=== PATIENT | female | born 1960 | race Caucasian/White ===

== ENCOUNTER 2021-09-24 10:35 | Inpatient (IN) | payer MEDICAID ==
[~2021-09-24] VITALS: Ht 162.6 cm; Wt 97.5 kg
[~2021-09-24 10:35] MED LIST: METH1TAB31
--- NOTE | 2021-09-24 10:48 | NUR ---
BIB FOR ON & OFF RLQ PAIN X 3 MONTHS,WORSE SINCE YESTERDAY. RATES RLQ PAIN 8/10. ABDOMEN SOFT AND NON-DISTENDED. DENIES N/V. RESPIRATION REGULAR AND UNLABORED. WILL CONTINUE TO MONITOR THE PATIENT.
--- NOTE | 2021-09-24 10:50 | NUR ---
URINE COLLECTED AND SENT TO LAB
[2021-09-24 11:20] LABS: BASOPHILS % (AUTO) 0.3 % (0.0-2.0); EOSINOPHILS % (AUTO) 0.8 % (0.0-6.0); HEMATOCRIT 40 % (33-45); HEMOGLOBIN 13.1 g/dL (11.5-14.8); MEAN CORPUSCULAR HGB CONC 33 g/dl (31.0-36.0); MEAN CORPUSCULAR VOLUME 91 fL (82-100); MONOCYTES # (AUTO) 0.4 K/uL (0.1-1.30); MONOCYTES % (AUTO) 4.5 % (2.0-12.0); NEUTROPHILS # (AUTO) 6.8 K/uL (1.8-8.9); NEUTROPHILS % (AUTO) 73.4 % (43.0-81.0); PLATELET COUNT (AUTO) 279 K/uL (150-450); WHITE BLOOD COUNT (AUTO) 9.3 K/uL (4.3-11.0)
[2021-09-24 11:21] LABS: BILIRUBIN,URINE NEGATIVE (NEGATIVE); COLOR,URINE YELLOW (YELLOW); LEUKOCYTE ESTERASE ,URINE NEGATIVE (NEGATIVE); NITRITE, URINE NEGATIVE (NEGATIVE); PH,URINE 5.5 (5.0-8.0); PROTEIN,URINE NEGATIVE (NEGATIVE); UGLUCOSE NEGATIVE (NEGATIVE); UROBILINOGEN,URINE 0.2 EU/dL (0.2)
--- NOTE | 2021-09-24 11:28 | NUR ---
WHEELED OUT VIA [facility] BY [facility] FOR CT SCAN
[2021-09-24 11:31] LABS: CALCIUM, SERUM 10.1 mg/dL (8.5-10.1); CREATININE 0.9 mg/dL (0.6-1.3); POTASSIUM 4.3 mmol/L (3.5-5.1)
[2021-09-24 11:36] LABS: ALBUMIN 3.6 g/dL (3.4-5.0); BILIRUBIN,DIRECT 0.1 mg/dL (0.0-0.2); BILIRUBIN,TOTAL 0.5 mg/dL (0.2-1.0); TOTAL PROTEIN, SERUM 7.5 g/dL (6.4-8.2)
[2021-09-24] MEDS ORDERED: LEVOFLOXACIN 750 MG /D5W 150ML PIGGYBACK IV ONE (13:30)
[2021-09-24] MEDS ORDERED: LEVOFLOXACIN 750 MG /D5W 150ML 150 ML IV ONE (13:35)
--- NOTE | 2021-09-24 14:45 | NUR ---
COVID AG SWAB DONE AND SENT TO LAB
[2021-09-24] MEDS ORDERED: ONDANSETRON HCL/PF 4 MG/2 ML VIAL ONE (14:52)
[2021-09-24] MEDS ORDERED: MORPHINE SULFATE INJ 2 MG/ML DISP.SYRIN ONE (14:53)
[2021-09-24] MEDS ORDERED: MORPHINE SULFATE INJ 2 MG/ML DISP.SYRIN IV ONE (15:00)
[2021-09-24] MEDS ORDERED: ONDANSETRON HCL/PF - ER 4 MG/2 ML VIAL IV ONE (15:00)
--- NOTE | 2021-09-24 16:12 | NUR ---
PATIENT IN BED, HOOKED TO MONITOR, VSS. KEPT SAFE AND COMFORTABLE.
[2021-09-24] MEDS ORDERED: ACETAMINOPHEN 325 MG TABLET PO PRN (19:00)
[2021-09-24] MEDS ORDERED: IV NS 0.9% 1,000 ML IV PRN (19:00)
[2021-09-24] MEDS ORDERED: MORPHINE SULFATE INJ 2 MG/ML DISP.SYRIN IV PRN (19:00)
--- NOTE | 2021-09-24 19:07 | NUR ---
ENDORSEMENT GIVEN TO KHOA CESAR FOR ROM
--- NOTE | 2021-09-24 19:49 | NUR ---
DR PECK PAGED
--- NOTE | 2021-09-24 21:12 | NUR ---
REPORT GIVEN TO ROBIN CESAR FOR ROM
--- NOTE | 2021-09-24 21:50 | NUR ---
RN ADMITTING NOTE PATIENT ADMITTED FROM ER TO MS FLOOR [id number]. PATIENT IS ABLE TO MAKE NEEDS KNOWN, A/O X 4. PATIENT AMBULATORY, STEADY GAIT. PATIENT HAS A RAC 18G PATENT AND INTACT, RUNNING NS AT 75 ML/HR. PATIENT COMPLAINING OF RIGHT LOWER ABD PAIN, STATES THAT THE PAIN IS "MANAGEABLE". PATIENT ON RA, TOLERATING WELL, NOT IN ANY APPARENT DISTRESS. SKIN ASSESSMENT COMPLETED, NO SKIN ISSUES FOUND. ORIENTED PATIENT IN ROOM, RN, BLAINE. SAFETY MEASURES IN PLACE: BED LOCKED AND IN LOWEST POSITION, CALL LIGHT WITHIN REACH, SIDE RAILS UP. PERSON TO NOTIFY: KEYANA [phone]
[2021-09-25 06:20] LABS: BASOPHILS % (AUTO) 0.5 % (0.0-2.0); EOSINOPHILS % (AUTO) 1.3 % (0.0-6.0); HEMATOCRIT 41 % (33-45); HEMOGLOBIN 13.4 g/dL (11.5-14.8); LYMPHOCYTES # (AUTO) 1.8 K/uL (0.8-4.8); MEAN CORPUSCULAR HGB CONC 33 g/dl (31.0-36.0); MEAN CORPUSCULAR VOLUME 90 fL (82-100); MONOCYTES # (AUTO) 0.4 K/uL (0.1-1.30); MONOCYTES % (AUTO) 5.2 % (2.0-12.0); NEUTROPHILS # (AUTO) 5.4 K/uL (1.8-8.9); PLATELET COUNT (AUTO) 270 K/uL (150-450); RED BLOOD CELL COUNT(AUTO) 4.49 MIL/uL (4.0-5.2); WHITE BLOOD COUNT (AUTO) 7.7 K/uL (4.3-11.0)
--- NOTE | 2021-09-25 06:44 | NUR ---
RN CLOSING NOTE PATIENT IS ABLE TO MAKE NEEDS KNOWN, A/O X 4. PATIENT AMBULATORY, STEADY GAIT. PATIENT HAS A RAC 18G PATENT AND INTACT, RUNNING NS AT 75 ML/HR. PATIENT COMPLAINING OF RIGHT LOWER ABD PAIN, ALTHOUGH PATIENT IS REFUSING ANY PAIN MEDICATION OFFERED. PATIENT ON RA, TOLERATING WELL, NOT IN ANY APPARENT DISTRESS. ALL NEEDS MET AND ATTENDED. ALL ORDERS CARRIED OUT. NPO STATUS MAINTAINED. SAFETY MEASURES IN PLACE: BED LOCKED AND IN LOWEST POSITION, CALL LIGHT WITHIN REACH, SIDE RAILS UP. WILL ENDORSE TO DAY SHIFT NURSE FOR ROM. Addendum: 09/25/21 at 0655 by ANUJ NOGUEIRA RN CONSENTS AND CHECKLIST COMPLETED FOR LAPAROSCOPIC APPENDECTOMY VS OPEN WITH DR. PECK SCHEDULED AT 1200.
[2021-09-25 06:52] LABS: CALCIUM, SERUM 8.7 mg/dL (8.5-10.1); CREATININE 0.9 mg/dL (0.6-1.3); MAGNESIUM 2.2 mg/dL (1.8-2.4); PHOSPHORUS 3.3 mg/dL (2.5-4.9); POTASSIUM 3.9 mmol/L (3.5-5.1)
--- NOTE | 2021-09-25 07:30 | NUR ---
RN OPENING NOTE PT IS IN BED AWAKE, A/O X4. NO S/S OF RESPIRATORY DISTRESS OR DISCOMFORT AT THIS TIME. RAC #18G INTACT AND PATENT, RUNNING NS AT 75 ML/HR. PT IS AWARE OF NPO STATUS AND GOALS FOR THE DAY. SAFETY MEASURES IN PLACE: BED LOCKED AND IN LOWEST POSITION, CALL LIGHT WITHIN REACH, SIDE RAILS UP X2. WILL CONTINUE TO MONITOR PT.
[2021-09-25 08:00] VITALS: BP 114/69
[2021-09-25] MEDS ORDERED: LIDOCAINE 1% INJ 50 ML MDV IJ ONE (08:54)
--- NOTE | 2021-09-25 10:00 | NUR ---
PT TRANSFERRED OFF UNIT TO OR FOR PROCEDURE @1000
[2021-09-25] MEDS ORDERED: BUPIVACAINE MPF W/EPI 0.25% 30 ML VIAL ONE (10:03)
[2021-09-25] MEDS ORDERED: ROCURONIUM BROMIDE 50 MG/5 ML ONE (10:16)
[2021-09-25] MEDS ORDERED: HYDROMORPHONE INJ 2 MG/ML DISP.SYRIN ONE (10:16)
[2021-09-25] MEDS ORDERED: CLINDAMYCIN 900 MG/6 ML VIAL ONE (10:20)
[2021-09-25] MEDS ORDERED: BACITRACIN ZINC OINT (15 GM) 15 GM TUBE TP ONE (11:44)
[2021-09-25] MEDS ORDERED: HYDROMORPHONE 1 MG/1 ML DISP.SYRIN ONE ×2 (12:05→12:29)
--- NOTE | 2021-09-25 12:55 | NUR ---
RN NOTES PT IS BACK IN HER ROOM @1255. PT IS STABLE ON 3L OF O2 NC WITH V/S: T 97.8, BP 128/76, HR 72, RR 18, 100% SAT. NO S/S OF PAIN OR DISCOMFORT AT THIS TIME. DR PECK ORDERED ACTIVITIES AD ANGELINA, CLEAR LIQUID DIET, LR 150ML/HR AND AM LABS FOR TOMORROW. WILL CONTINUE PLAN OF CARE.
[2021-09-25] MEDS: IV LR 1000 ML 1,000 ML IV PRN ×2 (15:02→22:28)
[2021-09-25] MEDS: ONDANSETRON HCL/PF 4 MG/2 ML VIAL IVP PRN ×2 (16:30→22:25)
[2021-09-25] MEDS: CLINDAMYCIN 600 MG in IV D5W 50 ML IV SCH (18:49)
--- NOTE | 2021-09-25 19:00 | NUR ---
RN CLOSING NOTE PT IN BED WITH EYES CLOSED, EASY TO AROUSE WITH VERBAL AND PHYSICAL STIMULI. PT IS ABLE TO MAKE NEEDS KNOWN. NO RESPIRATORY DISTRESS, ON 2L NC FOR COMFORT. IV ACCESS RAC #20G LR RUNNING @ 150ML/HR IN INTACT AND PATENT. DUE MEDS GIVEN ORDERED. ALL NEEDS WERE ATTENDED. SAFETY MEASURES IN PLACE: BED LOCKED, LOWEST POSITION, SIDE RAILS UP X2, CALL WITHIN REACH. WILL ENDORSE TO SUPERVISOR FILES NURSE FOR ROM.
[2021-09-25 20:00] VITALS: BP 120/73
--- NOTE | 2021-09-25 20:00 | NUR ---
MS RN OPENING NOTE PATIENT AWAKE IN BED WITH AT BEDSIDE, ALERT/ORIENTED X 4, PT ABLE TO MAKE NEEDS KNOWN. PATIENT STABLE ON RA, NO S/S OF DISTRESS OR SOB NOTED, BREATHING EVEN AND UNLABORED. PT REPORTS ONLY MILD PAIN AT THIS TIME. IV ACCESS ON RIGHT AC #20G INTACT AND RUNNING LR @ 150ML/HR. ABDOMINAL SURGICAL DRESSINGS CLEAN, DRY AND INTACT. SAFETY MEASURES IN PLACE: CALL LIGHT WITHIN REACH, SIDE RAILS UP X 2, BED LOCKED IN LOW POSITION, HOB ELEVATED, BED ALARM ON. WILL CONTINUE TO MONITOR PATIENT
[2021-09-25] MEDS: ACETAMINOPHEN 325 MG TABLET PO SCH (20:57)
[2021-09-25] MEDS: IBUPROFEN 400 MG TABLET PO SCH (20:57)
[2021-09-25] MEDS: GABAPENTIN 300 MG CAPSULE PO SCH (20:57)
[2021-09-26 01:57] VITALS: BP 160/95
[2021-09-26] MEDS: CLINDAMYCIN 600 MG in IV D5W 50 ML IV SCH ×2 (02:21→10:43)
[2021-09-26] MEDS: IBUPROFEN 400 MG TABLET PO SCH ×3 (05:29→21:30)
[2021-09-26] MEDS: IV LR 1000 ML 1,000 ML IV PRN (05:29)
[2021-09-26] MEDS: ACETAMINOPHEN 325 MG TABLET PO SCH ×3 (05:30→21:30)
[2021-09-26] MEDS: GABAPENTIN 300 MG CAPSULE PO SCH ×3 (05:30→21:30)
--- NOTE | 2021-09-26 06:51 | NUR ---
MS RN CLOSING NOTE PATIENT SLEEPING IN BED, ALERT/ORIENTED X 4, PT ABLE TO MAKE NEEDS KNOWN. PATIENT STABLE ON 2 LPM OF OXYGEN VIA NC, NO S/S OF DISTRESS OR SOB NOTED, BREATHING EVEN AND UNLABORED. NO SIGNIFICANT CHANGES THROUGHOUT SHIFT. IV ACCESS ON RIGHT AC #20G INTACT AND RUNNING LR @ 150ML/HR. ABDOMINAL SURGICAL DRESSINGS CLEAN, DRY AND INTACT. MEDICATIONS GIVEN ORDERED, PT NEEDS MET THROUGHOUT SHIFT. SAFETY MEASURES IN PLACE: CALL LIGHT WITHIN REACH, SIDE RAILS UP X 2, BED LOCKED IN LOW POSITION, HOB ELEVATED, BED ALARM ON. WILL ENDORSE TO DAY SHIFT NURSE FOR CONTINUITY OF CARE
--- NOTE | 2021-09-26 07:16 | NUR ---
MS RN OPENING NOTES PATIENT SLEEPING IN BED, ABLE TO BE AWAKENED. ALERT/ORIENTED X 4, ABLE TO MAKE NEEDS KNOWN. BREATHING EVEN AND UNLABORED, ON 2 LPM OF OXYGEN VIA NC, NO S/S OF DISTRESS NOTED. IV ACCESS ON RIGHT AC #20G INTACT AND RUNNING LR @ 150ML/HR. ABDOMINAL SURGICAL DRESSINGS C/D/I. SAFETY MEASURES IN PLACE: CALL LIGHT WITHIN REACH, SIDE RAILS UP X 2, BED LOCKED IN LOW POSITION, HOB ELEVATED, BED ALARM ON. WILL CONTINUE TO MONITOR.
[2021-09-26 08:00] VITALS: BP 119/70
[2021-09-26 08:44] LABS: BASOPHILS % (AUTO) 0.4 % (0.0-2.0); EOSINOPHILS % (AUTO) 0.1 % (0.0-6.0); HEMATOCRIT 37 % (33-45); HEMOGLOBIN 12.1 g/dL (11.5-14.8); LYMPHOCYTES # (AUTO) 1.8 K/uL (0.8-4.8); LYMPHOCYTES % (AUTO) 19.4 % (20.0-44.0); MEAN CORPUSCULAR HGB CONC 32 g/dl (31.0-36.0); MEAN CORPUSCULAR VOLUME 92 fL (82-100); MONOCYTES # (AUTO) 0.6 K/uL (0.1-1.30); MONOCYTES % (AUTO) 6.7 % (2.0-12.0); NEUTROPHILS # (AUTO) 6.9 K/uL (1.8-8.9); NEUTROPHILS % (AUTO) 73.4 % (43.0-81.0); PLATELET COUNT (AUTO) 283 K/uL (150-450); RED BLOOD CELL COUNT(AUTO) 4.09 MIL/uL (4.0-5.2); WHITE BLOOD COUNT (AUTO) 9.5 K/uL (4.3-11.0)
[2021-09-26 10:05] LABS: CALCIUM, SERUM 8.7 mg/dL (8.5-10.1); CREATININE 0.8 mg/dL (0.6-1.3); MAGNESIUM 2.1 mg/dL (1.8-2.4); PHOSPHORUS 3.1 mg/dL (2.5-4.9)
[2021-09-26 16:00] VITALS: BP 120/66
--- NOTE | 2021-09-26 19:00 | NUR ---
MS RN OPENING NOTES PATIENT IN BED WITH EYES CLOSED, ABLE TO BE AWAKENED. ALERT/ORIENTED X4, ABLE TO MAKE NEEDS KNOWN. BREATHING EVEN AND UNLABORED, ON 2 LPM OF OXYGEN VIA NC, NO COMPLAINTS OF PAIN OR DISCOMFORT AT THIS TIME. IV ACCESS ON RIGHT AC #20G INTACT AND RUNNING LR @ 150ML/HR. ABDOMINAL SURGICAL DRESSINGS C/D/I. SAFETY MEASURES IN PLACE: CALL LIGHT WITHIN REACH, SIDE RAILS UP X2, BED LOCKED IN LOW POSITION, HOB ELEVATED, BED ALARM ON. WILL ENDORSE TO PERSONAL INSURANCE ADVISOR NURSE FOR ROM.
--- NOTE | 2021-09-26 20:04 | NUR ---
MS RN OPENING NOTE PATIENT AWAKE IN BED WITH FAMILY AT BEDSIDE, ALERT/ORIENTED X 4, PT ABLE TO MAKE NEEDS KNOWN. PATIENT STABLE ON RA, NO S/S OF DISTRESS OR SOB NOTED, BREATHING EVEN AND UNLABORED. PT DENIES PAIN AND NAUSEA AT THIS TIME. IV ACCESS ON RIGHT AC SWOLLEN, REMOVED IV AND PLACED ICE PACK. PT REFUSED IV REINSERTION, MD AWARE, ENCOURAGED PATIENT TO CONTINUE DRINKING FLUIDS. ABDOMINAL SURGICAL DRESSINGS CLEAN, DRY AND INTACT. SAFETY MEASURES IN PLACE: CALL LIGHT WITHIN REACH, SIDE RAILS UP X 2, BED LOCKED IN LOW POSITION, HOB ELEVATED, BED ALARM ON. WILL CONTINUE TO MONITOR PATIENT
--- NOTE | 2021-09-26 22:43 | NUR ---
MS DISCHARGE NOTE PATIENT DISCHARGED IN STABLE CONDITION, ALERT/ORIENTED X 4, PT DENIES PAIN. PT STABLE ON RA, NO S/S OF DISTRESS OR SOB NOTED, BREATHING EVEN AND UNLABORED. ALL BELONGINGS ACCOUNTED FOR AND TAKEN WITH PATIENT. IDENTIFICATION BANDS REMOVED AND IV ACCESS REMOVED WITH MINIMAL BLEEDING, PRESSURE AND GAUZE APPLIED. DISCHARGE INSTRUCTIONS EXPLAINED TO PATIENT WHO VERBALIZED UNDERSTANDING TO FOLLOW UP WITH DR. PECK. WALKED PATIENT TO CAR WITH IN SAFE CONDITIONS
== END 2021-09-26 22:30 | disposition home or self-care (01) | DRG 234 ==
LOC: ER 10:43 → MED 20:23
PROVIDERS: ADMIT Nurse Practitioner Acute Care; ATTEND Nurse Practitioner Acute Care
PROC: 0DTJ4ZZ Resection of Appendix, Percutaneous Endoscopic Approach (ICD-10-PCS; principal; 2021-09-26)
DX: K35.80 Unspecified acute appendicitis (principal); D68.59 Other primary thrombophilia; K76.0 Fatty (change of) liver, not elsewhere classified; E66.01 Morbid (severe) obesity due to excess calories; Z68.36 Body mass index [BMI] 36.0-36.9, adult; Z88.0 Allergy status to penicillin; K66.0 Peritoneal adhesions (postprocedural) (postinfection); N20.0 Calculus of kidney; K57.30 Diverticulosis of large intestine without perforation or abscess without bleeding; Z20.822 Contact with and (suspected) exposure to COVID-19
CPT/HCPCS: 36415; 71045-TC; 80048-TC; 80061-TC; 80076-TC; 83690-TC; 83735-TC; 84100-TC; 85025-TC; 85610-TC; 85730-TC; 86850-TC; 87081-TC; 88304-TC; C9803; G0378; J0330; J1100; J1170; J1885; J1956; J2270; J2405; J2704; J3490; J7030; J7060; J7120